=== PATIENT | female | born 1965 | race Caucasian/White ===

== ENCOUNTER → 2016-08-06 | Outpatient (CLI) | payer MEDICAID ==
[2014-05-08 12:57] VITALS: BP 138/79
[~2016-08-06] MED LIST: DICL75TA PO; GABA-586 PO; HYDR-2666 PO; LORA1TAB PO; PANT40GR PO; SPIR50TA2 PO; SUMA100T3 PO; TIZA2CAP3 PO; TOPI100T39 PO; VENL150C PO
--- NOTE | 2016-08-06 12:26 | RAD ---
Indication chronic pain. Internally and externally rotated views of the right shoulder as well as a Y view were obtained. No acute bony finding is seen. Significant degenerative changes are not apparent on plain films. If further evaluation of the shoulder is warranted an MRI examination may prove useful. IMPRESSION: No acute or significant finding seen involving the right shoulder on plain films
== END | disposition home or self-care (01) ==
LOC: RAD 11:57
PROVIDERS: ATTEND Nurse Practitioner Occupational Health
DX: M25.511 Pain in right shoulder (principal); G89.29 Other chronic pain
CPT/HCPCS: 73030

== ENCOUNTER → 2017-11-25 | Outpatient (CLI) | payer MEDICAID, OTHER ==
[2014-05-08 12:57] VITALS: BP 138/79
[~2017-11-25] MED LIST changes: -HYDR-2666 PO; +HYDR-2758 PO; -SPIR50TA2 PO; +SPIR50TA4 PO; -TOPI100T39 PO; +TOPI100T42 PO
--- NOTE | 2017-11-25 13:59 | KCIC ---
MR of the left shoulder Indication: Left shoulder pain for 4 5 months. Technique: Standard multiplanar sequences are obtained. Findings: Artifact: No significant image degradation. Acromioclavicular joint: Mildly degenerative. Rotator cuff: * Supraspinatus-infraspinatus tendon: Deep bursal surface tear of the anterior supraspinatus footprint measures 10 mm AP, and at least 90% deep, coronal series 9, image 11 and 12. * Subscapularis tendon: Intact * Muscle bulk: Within normal limits * Subacromial subdeltoid bursa: Trace effusion. Fluid: No significant glenohumeral effusion. Glenohumeral cartilage: Mild degenerative change and chondromalacia Labrum: No evidence of labral detachment. Biceps tendon: Intact Bones: Minimal cystic change at the posterior greater tuberosity. Soft tissue: No acute findings. Impression: 1. Small but deep bursal surface tear of the anterior supraspinatus tendon footprint. 2. Mild primary osteoarthritis. Electronically signed by: Jose Angel Harden MD (11/25/2017 1:56 PM) [id number]
== END | disposition home or self-care (01) ==
LOC: KCIC MRI 10-17 09:05
PROVIDERS: ATTEND Orthopaedic Surgery
DX: M75.112 Incomplete rotator cuff tear or rupture of left shoulder, not specified as traumatic (principal); M19.012 Primary osteoarthritis, left shoulder; M94.212 Chondromalacia, left shoulder; M19.011 Primary osteoarthritis, right shoulder; G43.909 Migraine, unspecified, not intractable, without status migrainosus; Z87.891 Personal history of nicotine dependence
CPT/HCPCS: 73221

== ENCOUNTER → 2017-12-18 | Outpatient (CLI) | payer OTHER ==
[2014-05-08 12:57] VITALS: BP 138/79
--- NOTE | 2017-12-18 16:24 | KCIC ---
Bilateral digital screening mammograms: Reason for examination: Routine screening. No previous examinations for comparison. New baseline exam. Interpretation was made with the benefit of CAD. The skin and nipples show no abnormalities. No abnormal axillary lymph nodes are seen. Bilateral breast implants are present. The breast parenchyma shows scattered fibroglandular density. (Breast density: Category B.) There are no dominant masses, suspicious calcifications or architectural distortions. Impression: No evidence of malignancy. Recommend routine screening. BI-RADS Category 1: Negative. "Our facility is accredited by the [employer] Mammography Program." This patient's information has been entered into a reminder system for the patient to be notified with the results of her examination and a target date for the next mammogram. Electronically signed by: Oliva Castillo MD (12/18/2017 4:20 PM) [id number]
== END | disposition home or self-care (01) ==
LOC: KCIC MAMMO 12:14
PROVIDERS: ATTEND Obstetrics & Gynecology
DX: Z12.31 Encounter for screening mammogram for malignant neoplasm of breast (principal); M19.011 Primary osteoarthritis, right shoulder; M19.012 Primary osteoarthritis, left shoulder; G43.909 Migraine, unspecified, not intractable, without status migrainosus; Z87.891 Personal history of nicotine dependence
CPT/HCPCS: 77067

== ENCOUNTER → 2019-09-16 | Outpatient (CLI) | payer MEDICARE ==
[2014-05-08 12:57] VITALS: BP 138/79
[~2019-09-16] MED LIST changes: -GABA-586 PO; +GABA300C18 PO; -HYDR-2758 PO; +HYDR-2761 PO
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
== END | disposition home or self-care (01) ==
LOC: KCIC 15:41
PROVIDERS: ATTEND Family Medicine
DX: M47.892 Other spondylosis, cervical region (principal); M46.02 Spinal enthesopathy, cervical region
CPT/HCPCS: 72050